=== PATIENT | female | born 1990 | race Caucasian/White ===

== ENCOUNTER 2017-07-11 19:04 | Emergency (ER) | payer OTHER ==
[2017-07-11 19:17] VITALS: RESP 16
--- NOTE | 2017-07-11 19:30 | CPEKG ---
Heart Rate: 94 RR Interval: 638 P-R Interval: 124 QRSD Interval: 86 QT Interval: 336 QTC Interval: 421 P [place]: 46 QRS [place]: 35 T Wave [place]: 14 EKG Severity - NORMAL ECG - EKG Impression: SINUS RHYTHM Electronically Signed By: Patrick Moe 11-Jul-2017 20:51:57
[2017-07-11 19:51] LABS: % IMMATURE GRANULYOCYTES 0.4 % (0.0-1.1); ABSOLUTE IMMATURE GRANULOCYTES 0.02 10^3/uL (0.00-0.10); ADD DIFF? NO; ADD MORPH? NO; ADD SCAN? NO; ATYPICAL LYMPHOCYTE FLAG 0 (0-99); FRAGMENT RBC FLAG 0 (0-99); HEMATOCRIT 47.9 % (38.0-47.0); HEMOGLOBIN 16.3 g/dL (12.6-16.3); LEFT SHIFT FLG 0 (0-99); LIPEMIA HEMOLYSIS FLAG 90 (0-99); MEAN CELL HEMOGLOBIN 30.4 pg (27.9-34.1); MEAN CELL VOLUME 89.4 fL (81.5-99.8); MEAN PLATELET VOLUME 9.6 fL (8.7-11.7); PLATELET CLUMPS FLAG 0 (0-99); PLATELET COUNT 329 10^3/uL (150-400); RED BLOOD CELL COUNT 5.36 10^6/uL (4.18-5.33); RED CELL DISTRIBUTION WIDTH 11.9 % (11.5-15.2)
--- NOTE | 2017-07-11 19:54 | EDPHY ---
H & P Time Seen by Provider: 07/11/17 19:22 HPI/ROS: CHIEF COMPLAINT: Central chest pain HISTORY OF PRESENT ILLNESS: This 27-year-old woman has been having intermittent chest pain for several weeks. Since about approximately 1 week ago she said symptoms continuously and not intermittent. It is in the center of her chest without radiation. Little bit worse with exertion but not with position or deep respiration. Not associated with cough or fever or recent injury or trauma. No belching or burping or nausea or vomiting. Symptoms moderate and persistent for the last week. REVIEW OF SYSTEMS: Eye: no change in vision ENT: no sore throat Cardiac: HPI no syncope. She has been off her metoprolol for about 3 weeks and was seen last Sunday at urgent care and restarted on extended-release metoprolol. 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 A comprehensive 10 point review of systems is otherwise negative aside from elements mentioned in the history of present illness. PAST MEDICAL HISTORY: Migraines, anxiety and depression. Reflux. Asthma. 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 Negative for diabetes or hypertension or hypercholesterolemia. Family history: Older half-sister had pulmonary embolism. Social history: Negative for cocaine or amphetamines. Nonsmoker. General Appearance: Alert and conversant, cooperative. Eyes: No scleral icterus. ENT, Mouth: Normal mucous membranes. Respiratory: Normal respiratory effort, breath sounds equal, lungs are clear to auscultation. No wheezing. Cardiovascular: Regular rate and rhythm. No murmur. Gastrointestinal: Abdomen is soft and non tender. Negative Leonard sign. Neurological: Alert and oriented x3. Normally conversant. Face symmetric, normal movement and sensation in all extremities. Skin: Warm and dry, no rashes. Musculoskeletal: No peripheral edema and no joint swelling. No calf tenderness. Psychiatric: Not agitated. Emergency Department course/MDM: Patient thinks her chest pain is due to stress from working night shifts and her blood pressure which is been up and down over the past couple of weeks. Low pretest clinical probability for pulmonary embolism, appears appropriate for D-dimer screening. Normal EKG and low risk factor profile for ACS, with negative troponin would consider that very unlikely. 2030: Results discussed, plan to discharge if chest x-ray is normal. 2052: Chest x-ray personally interpreted as normal. Smoking Status: Never smoked Constitutional: Initial Vital Signs Temperature (C) 36.9 C 07/11/17 19:14 Heart Rate 105 H 07/11/17 19:14 Respiratory Rate 16 07/11/17 19:14 Blood Pressure 153/113 H 07/11/17 19:14 O2 Sat (%) 99 07/11/17 19:14 O2 Delivery Mode Room Air Allergies/Adverse Reactions: ciprofloxacin [From Cipro] Allergy (Verified 07/11/17 19:12) Home Medications: Medication Instructions Recorded Amitriptyline HCl [Elavil] 07/11/17 Methocarbamol [Robaxin-750] 07/11/17 Metoprolol Samuels/Hydrochlorothiaz 07/11/17 [Metoprolol ER-Hctz 25-12.5 mg] Tcnifcut43/Folic AC/Nadh/Coq10 07/11/17 [Xyzbac Tablet] Tramadol HCl 07/11/17 Medical Decision Making Differential Diagnosis: Differential diagnosis considered for chest pain including but not limited to myocardial ischemia, aortic dissection, pericarditis, pulmonary embolus, chest wall pain, pleural inflammation and pulmonary infectious causes. - Data Points Laboratory Results: Laboratory Results 07/11/17 19:38 07/11/17 19:38 07/11/17 07/11/17 07/11/17 19:38 19:38 19:38 WBC RBC Hgb Hct MCV MCH MCHC RDW Plt Count MPV Neut % (Auto) Lymph % (Auto) [place] % (Auto) Eos % (Auto) Baso % (Auto) Nucleat RBC Rel Count Absolute Neuts (auto) Absolute Lymphs (auto) Absolute Monos (auto) Absolute Eos (auto) Absolute Basos (auto) Absolute Nucleated RBC Immature Gran % Immature Gran # D-Dimer < 0.27 ug/mLFEU ug/mLFEU (0.00-0.50) Sodium 141 mEq/L mEq/L (134-144) Potassium 4.1 mEq/L mEq/L (3.5-5.2) Chloride 101 mEq/L mEq/L (97-110) Carbon Dioxide 24 mEq/l mEq/l (22-31) Anion Gap 16 mEq/L mEq/L (8-16) BUN 9 mg/dL mg/dL (7-23) Creatinine 0.9 mg/dL mg/dL (0.6-1.0) Estimated GFR > 60 Glucose 114 mg/dL H mg/dL (70-100) Calcium 9.8 mg/dL mg/dL (8.5-10.4) Troponin I < 0.012 ng/mL ng/mL (0.000-0.034) Beta HCG, Qual NEGATIVE 07/11/17 19:38 WBC 5.54 10^3/uL 10^3/uL (3.80-9.50) RBC 5.36 10^6/uL H 10^6/uL (4.18-5.33) Hgb 16.3 g/dL g/dL (12.6-16.3) Hct 47.9 % H % (38.0-47.0) MCV 89.4 fL fL (81.5-99.8) MCH 30.4 pg pg (27.9-34.1) MCHC 34.0 g/dL g/dL (32.4-36.7) RDW 11.9 % % (11.5-15.2) Plt Count 329 10^3/uL 10^3/uL (150-400) MPV 9.6 fL fL (8.7-11.7) Neut % (Auto) 62.4 % % (39.3-74.2) Lymph % (Auto) 29.2 % % (15.0-45.0) Dick[place] % (Auto) 5.1 % % (4.5-13.0) Eos % (Auto) 2.2 % % (0.6-7.6) Baso % (Auto) 0.7 % % (0.3-1.7) Nucleat RBC Rel Count 0.0 % % (0.0-0.2) Absolute Neuts (auto) 3.46 10^3/uL 10^3/uL (1.70-6.50) Absolute Lymphs (auto) 1.62 10^3/uL 10^3/uL (1.00-3.00) Absolute Monos (auto) 0.28 10^3/uL L 10^3/uL (0.30-0.80) Absolute Eos (auto) 0.12 10^3/uL 10^3/uL (0.03-0.40) Absolute Basos (auto) 0.04 10^3/uL 10^3/uL (0.02-0.10) Absolute Nucleated RBC 0.00 10^3/uL 10^3/uL (0-0.01) Immature Gran % 0.4 % % (0.0-1.1) Immature Gran # 0.02 10^3/uL 10^3/uL (0.00-0.10) D-Dimer Sodium Potassium Chloride Carbon Dioxide Anion Gap BUN Creatinine Estimated GFR Glucose Calcium Troponin I Beta HCG, Qual Departure - Departure Disposition: Home, Routine, Self-Care Clinical Impression: Chest pain Qualifiers: Chest pain type: unspecified Qualified Code(s): R07.9 - Chest pain, unspecified Hypertension Qualifiers: Hypertension type: unspecified Qualified Code(s): I10 - Essential (primary) hypertension Condition: Good Instructions: Chest Pain (ED) Additional Instructions: Continue metoprolol as prescribed. Please contact your physician tomorrow by phone to arrange follow-up. Referrals: VIRY HERNANDEZ DO [Other] - As per Instructions
[2017-07-11 20:05] LABS: ANION GAP 16 mEq/L (8-16); CALCIUM 9.8 mg/dL (8.5-10.4); CARBON DIOXIDE 24 mEq/l (22-31); CHLORIDE 101 mEq/L (97-110); CREATININE 0.9 mg/dL (0.6-1.0); GLOMERULAR FILTRATION RATE > 60; GLUCOSE 114 mg/dL (70-100); POTASSIUM 4.1 mEq/L (3.5-5.2); SODIUM 141 mEq/L (134-144)
[2017-07-11 20:15] LABS: TROPONIN I < 0.012 ng/mL (0.000-0.034)
[2017-07-11 21:04] VITALS: BP 129/93; PULSE 89; TEMP 98.6; O2SAT 96
== END 2017-07-11 21:03 | disposition home or self-care (01) ==
DX: R07.9 Chest pain, unspecified (principal); I10 Essential (primary) hypertension; J45.909 Unspecified asthma, uncomplicated